=== PATIENT | female | born 1955 | race Hispanic/Latino ===

== ENCOUNTER 2017-06-18 23:59 | Emergency (ER) | payer OTHER, BC ==
[2017-06-19] MEDS ORDERED: KETOROLAC TROMETHAMINE 30MG/ML ONE (01:41)
[2017-06-19] MEDS ORDERED: HYDROCODONE/ACETAMINOPHEN 5/325 MG TAB ONE (01:42)
== END 2017-06-19 01:57 | disposition home or self-care (01) ==
LOC: EDH 23:59
DX: K08.89 Other specified disorders of teeth and supporting structures (principal)
CPT/HCPCS: 96372; 99283; J1885